=== PATIENT | female | born 1975 | race Caucasian/White ===

== ENCOUNTER → 2016-07-14 | Outpatient (CLI) | payer OTHER | LOC: KOH-I 11:24 | DX: M25.511 Pain in right shoulder (principal) | CPT/HCPCS: 73030 ==

== ENCOUNTER 2020-04-19 23:14 | Emergency (ER) | payer SELFPAY ==
[2020-04-20] MEDS ORDERED: PENVEE K 500 M500 MG PO (02:42)
[2020-04-20] MEDS ORDERED: LODINE CAP 300300 MG PO (02:42)
== END 2020-04-20 02:50 | disposition home or self-care (01) ==
LOC: ER1 23:14
DX: K04.7 Periapical abscess without sinus (principal); K02.9 Dental caries, unspecified; F17.210 Nicotine dependence, cigarettes, uncomplicated
CPT/HCPCS: 99282